=== PATIENT | female | born 1995 | race Caucasian/White ===

== ENCOUNTER 2021-04-23 23:04 | Emergency (ER) | payer BC ==
--- NOTE | 2021-04-23 23:26 | EDM.PDOC ---
ED HPI GENERAL MEDICAL PROBLEM - General Chief Complaint: Cardiovascular Problem Stated Complaint: FAST HEART RATE Time Seen by Provider: 04/23/21 23:15 Source of Information: Reports: Patient History Limitations: Reports: No Limitations - History of Present Illness INITIAL COMMENTS - FREE TEXT/NARRATIVE: c/o palpitations x 2w [employer], works at [employer], lives with boyfriend who is not ill vapes, no THC HR up to 110 tonight that got her worried, slight sob at times, no BEACH/CP, no n/v works 40-50 hrs/wk has h/o anxiety no f/c/d, no rhinorhea has not had COVID vax - Related Data Allergies Allergy/AdvReac Type Severity Reaction Status Date / Time No Known Allergies Allergy Verified 04/23/21 23:13 Home Meds: Home Meds Omeprazole 20 mg PO DAILY 04/23/21 [History] Past Medical History Gastrointestinal History: Reports: GERD Psychiatric History: Reports: Anxiety, Depression - Past Surgical History GI Surgical History: Reports: Appendectomy Social & Family History - Caffeine Use Caffeine Use: Reports: Coffee, Soda - Recreational Drug Use Recreational Drug Use: No ED ROS GENERAL - Review of Systems Review Of Systems: See Below Constitutional: Reports: No Symptoms HEENT: Reports: No Symptoms Respiratory: Reports: No Symptoms Cardiovascular: Reports: Palpitations Endocrine: Reports: No Symptoms GI/Abdominal: Reports: No Symptoms : Reports: No Symptoms Musculoskeletal: Reports: No Symptoms Skin: Reports: No Symptoms Neurological: Reports: No Symptoms Psychiatric: Reports: Anxiety Hematologic/Lymphatic: Reports: No Symptoms Immunologic: Reports: No Symptoms ED EXAM, GENERAL - Physical Exam Exam: See Below Exam Limited By: No Limitations General Appearance: Alert, WD/WN, Anxious Nose: Normal Inspection Throat/Mouth: Normal Inspection, Normal Lips, Normal Voice, No Airway Compromise Head: Atraumatic, Normocephalic Neck: Normal Inspection, Supple, Non-Tender, Full Range of Motion. No: Lymphadenopathy (R), Lymphadenopathy (L) Respiratory/Chest: No Respiratory Distress, Lungs Clear, Normal Breath Sounds, No Accessory Muscle Use, Chest Non-Tender Cardiovascular: Regular Rate, Rhythm, No Edema, No Gallop, No Murmur, No Rub GI/Abdominal: Normal Bowel Sounds, Soft, Non-Tender, No Distention Back Exam: Normal Inspection, Full Range of Motion. No: CVA Tenderness (R), CVA Tenderness (L) Extremities: Normal Inspection, Normal Range of Motion, Non-Tender, No Pedal Edema Neurological: Alert, Oriented, CN II-XII Intact, Normal Cognition, No Motor/Sensory Deficits Psychiatric: Normal Affect, Normal Mood Skin Exam: Warm, Dry, Intact, Normal Color, No Rash Lymphatic: No Adenopathy Course - Vital Signs Last Recorded V/S: Last Vital Signs Temp 36.8 C 04/23/21 23:14 Pulse 89 04/23/21 23:14 Resp 18 04/23/21 23:14 BP 151/100 H 04/23/21 23:14 Pulse Ox 100 04/23/21 23:14 - Orders/Labs/Meds Labs: Laboratory Tests 04/23/21 04/23/21 Range/Units 23:40 23:40 WBC 9.3 (3.0-10.3) x10-3/uL RBC 4.47 (3.60-5.20) x10(6)uL Hgb 14.1 (11.4-15.5) g/dL Hct 40.8 (34.2-48.2) % MCV 91.2 (76.7-100.5) fL MCH 31.5 (23.9-33.9) pg MCHC 34.5 (31.9-34.8) g/dL RDW 12.5 (12.3-16.5) % Plt Count 332 (151-488) x10(3)uL MPV 7.6 (7.1-12.4) fL Neut % (Auto) 53.0 (30.8-76.2) % Lymph % (Auto) 39.6 (18.4-52.1) % [place] % (Auto) 6.0 (4.4-15.7) % Eos % (Auto) 0.9 (0.6-8.1) % Baso % (Auto) 0.5 (0.2-1.5) % Neut # (Auto) 4.9 (1.5-6.3) x10-3/uL Lymph # (Auto) 3.7 (1.0-4.4) x10-3/uL [place] # (Auto) 0.6 (0.3-1.0) x10-3/uL Eos # (Auto) 0.1 (0.0-0.8) x10-3/uL Baso # (Auto) 0.1 (0.0-0.1) x10-3/uL Troponin I < 4.0 L (4.0-60.3) pg/mL C-Reactive Protein 0.6 (0.5-0.9) mg/dL - Re-Assessments/Exams Free Text/Narrative Re-Assessment/Exam: 04/24/21 00:15 BP was quite high initially, was 101/57 at time of d/c. HR remained wnl. Normal variability of BP and HR discussed. No evidence of infection or illness or cardiovascular concerns. Pt said she had no additional questions. Departure - Departure Time of Disposition: 00:12 Disposition: Home, Self-Care 01 Condition: Good Clinical Impression: Palpitations Instructions: Palpitations Forms: ED Department Discharge Additional Instructions: Your heart and lung exam are normal. Your vital signs shows normal variability. Your labs are within normal limits. You may work and continue usual activities without restriction. Avoid excess caffeine and energy drinks. See your doctor in 1-2 weeks if you have additional questions or concerns. Sepsis Event Note (ED) - Evaluation Sepsis Screening Result: No Definite Risk - Focused Exam Vital Signs: Vital Signs Temp Pulse Resp BP Pulse Ox 04/23/21 23:14 36.8 C 89 18 151/100 H 100
== END 2021-04-24 00:20 | disposition home or self-care (01) ==
LOC: FB.ED 23:04
DX: R00.2 Palpitations (principal); K21.9 Gastro-esophageal reflux disease without esophagitis; F17.290 Nicotine dependence, other tobacco product, uncomplicated; Z79.899 Other long term (current) drug therapy
CPT/HCPCS: 36415; 84484; 85025; 86140; 99284